=== PATIENT | male | born 1965 | race African-American/Black ===

== ENCOUNTER 2016-08-23 12:32 | Emergency (ER) | payer OTHER ==
[2016-08-23 17:57] VITALS: BP 132/97
== END 2016-08-23 17:41 | disposition home or self-care (01) ==
LOC: ED 12:32
DX: Z76.0 Encounter for issue of repeat prescription (principal); E11.40 Type 2 diabetes mellitus with diabetic neuropathy, unspecified; Z79.4 Long term (current) use of insulin
CPT/HCPCS: J1885